=== PATIENT | female | born 1990 | race African-American/Black ===

== ENCOUNTER 2019-03-10 03:36 | Inpatient (IN) ==
[2019-03-10] MEDS ORDERED: CITRIC ACID/SODIUM CITRATE 30 ML UDCUP PO ONE (03:58)
[2019-03-10] MEDS ORDERED: ceFAZolin 2,000 MG in PREMIX 1 EACH IV ONE (03:58)
[2019-03-10] MEDS ORDERED: FAMOTIDINE 20 MG/2 ML VIAL IV ONE (03:58)
[2019-03-10] MEDS ORDERED: OXYTOCIN/LR 30 UNIT/1,000 ML BAG IV PRN (04:00)
[2019-03-10] MEDS ORDERED: OXYTOCIN 10 UNIT/ML VIAL ONE (04:02)
[2019-03-10 04:20] LABS: Basophils # 0.1 10*3/uL (0.0-0.2); Basophils % 0.5 % (0.0-0.8); Eosinophils # 0.1 10*3/uL (0.0-0.87); Eosinophils % 1.4 % (0.00-10.9); Hematocrit 34.9 VOL% (35.7-47.0); Hemoglobin 12.1 GM/DL (12.0-16.0); Immature Granulocytes % 0.5 %; Immature Granulocytes Absolute 0.05 #; Lymphocytes # 1.9 10*3/uL (1.4-4.0); Lymphocytes % 20.1 % (21.3-54.2); Mean Corpuscular HGB Conc 34.7 GM/DL (32-36); Mean Corpuscular Volume 97.2 FL (87-102); Mean Platelet Volume 9.5 FL (9.6-12.0); Monocytes % 6.8 % (1.7-12.7); Neutrophils % 70.7 % (38.7-73.9); Platelet Count 240 T/CUMM (130-400); Red Blood Count 3.59 MC/CUMM (3.8-5.5); Red Cell Distribution Width 12.7 % (9.3-17.3); White Blood Count 9.3 T/CUMM (4-12)
[2019-03-10 04:29] LABS: INR 0.8; PT Patient Result 9.1 SECS (9.6-12.2); Partial Thromboplastin Time 21.8 SECS (20.8-36.0)
[2019-03-10 04:41] LABS: Bilirubin,Direct < 0.100 MG/DL (0.0-0.20)
[2019-03-10 04:45] LABS: Alanine Aminotransferase 20 U/L (13-56); Alkaline Phosphatase 118 U/L (45-117); Aspartate Amino Transferase 17 U/L (0-37); Bilirubin,Total < 0.39 MG/DL (0.2-1.0); Blood Urea Nitrogen 6 MG/DL (7-18); Calcium 8.8 MG/DL (8.5-10.1); Estimated Glom Filtration Rate 117 ML/MIN; Glucose 130 MG/DL (74-106)
[2019-03-10 04:53] LABS: Cord Arterial Blood HCO3 17.6 MMOL/L; Cord Venous Blood HCO3 22.1 MMOL/L; Cord Venous Blood PCO2 50.7 MMHG; Cord Venous Blood PO2 24.2 MMHG
[2019-03-10 05:14] LABS: Amorphous Crystals,Urine Occasional /HPF (Few); Apearance,Urine Slightly Hazy (Clear); Bacteria,Urine Occasional /HPF (Few); Bilirubin,Urine Negative (Negative); Blood, Urine Negative (Negative); Glucose,Urine (UA) Negative (Negative); Ketones,Urine Negative (Negative); Mucus,Urine Many /LPF (Occasional); Nitrite,Urine Negative (Negative); Protein,Urine 100 MG/DL; RBC,Urine 2 /HPF (0-4); Squamous Epithelial Cell,Urine Occasional /HPF (0-10); Urine Color Yellow (Yellow); Urine Specific Gravity 1.017 (1.001-1.035); WBC,Urine 1 /HPF (0-6)
[2019-03-10] MEDS ORDERED: PROPOFOL 200 MG/20 ML VIAL IV ONE (05:28)
[2019-03-10] MEDS ORDERED: fentaNYL 100 MCG/2 ML VIAL ONE (05:29)
[2019-03-10] MEDS ORDERED: MIDAZOLAM 2 MG/2 ML VIAL ONE (05:30)
[2019-03-10] MEDS ORDERED: DEXAMETHASONE 10 MG/1 ML VIAL ONE (05:30)
[2019-03-10] MEDS ORDERED: ONDANSETRON 4 MG/2 ML VIAL ONE (05:31)
[2019-03-10] MEDS ORDERED: LIDOCAINE 2% 5 ML VIAL ONE (05:31)
[2019-03-10] MEDS ORDERED: SUCCINYLCHOLINE 200 MG/10 ML VIAL ONE (05:32)
[2019-03-10] MEDS ORDERED: SEVOFLURANE 1 UNIT/15 MINUTE INH ONE (05:32)
[2019-03-10] MEDS: HYDROmorphone 2 MG/1 ML VIAL IV SCH ×4 (06:02→18:49)
[2019-03-10] MEDS ORDERED: ONDANSETRON 4 MG/2 ML VIAL IV PRN (06:06)
[2019-03-10] MEDS ORDERED: OXYTOCIN/LR 20 UNIT/1,000 ML BAG IV ONE (06:06)
[2019-03-10] MEDS ORDERED: RHO(D) IMMUNE GLOBULIN 300 MCG SYRINGE IM ONE (06:06)
[2019-03-10] MEDS ORDERED: ACETAMINOPHEN 325 MG TABLET PO PRN (06:06)
[2019-03-10] MEDS: LACTATED RINGERS 1,000 ML IV SCH ×5 (07:12→18:21)
[2019-03-10] MEDS: ceFAZolin 1,000 MG in SYRINGE 1 EACH IV SCH ×2 (07:41→16:26)
[2019-03-10] MEDS ORDERED: hydrALAZINE 20 MG/1 ML VIAL IV ONE ×2 (09:31→10:03)
[2019-03-10] MEDS: diphenhydrAMINE 50 MG/1 ML VIAL IV PRN ×2 (10:46→18:19)
[2019-03-10 11:15] LABS: Hematocrit 28.9 VOL% (35.7-47.0)
[2019-03-10] MEDS: HYDROmorphone 2 MG/1 ML VIAL IV PRN ×2 (13:43→17:56)
[2019-03-10] MEDS ORDERED: ceFAZolin 1,000 MG in SYRINGE 1 EACH IV ONE (16:09)
[2019-03-10] MEDS: DOCUSATE SODIUM 100 MG CAPSULE PO SCH ×2 (16:25→22:32)
[2019-03-10] MEDS: MULTIVITAMIN (PRENATAL) TABLET PO SCH (16:25)
[2019-03-10] MEDS ORDERED: KETOROLAC 30 MG/1 ML VIAL IV PRN (19:27)
[2019-03-10] MEDS: SIMETHICONE CHEW 80 MG TABLET PO PRN (19:34)
[2019-03-10] MEDS: POTASSIUM CHLORIDE 20 MEQ TABLET PO PRN ×3 (19:51→23:51)
[2019-03-10 20:17] LABS: Hematocrit 24.3 VOL% (35.7-47.0); Hemoglobin 8.4 GM/DL (12.0-16.0)
[2019-03-10] MEDS: hydrOXYzine HCL 25 MG/1 ML VIAL IM PRN (22:09)
[2019-03-10] MEDS ORDERED: oxyCODONE/ACETAMINOPHEN 5-325 MG TABLET PO PRN (22:33)
[2019-03-11] MEDS: oxyCODONE/ACETAMINOPHEN 5-325 MG TABLET PO PRN ×4 (01:17→20:10)
[2019-03-11] MEDS: POTASSIUM CHLORIDE 20 MEQ TABLET PO PRN ×3 (01:45→11:27)
[2019-03-11] MEDS: hydrOXYzine HCL 25 MG/1 ML VIAL IM PRN (03:21)
[2019-03-11] MEDS ORDERED: diphenhydrAMINE CAP 25 MG CAPSULE PO PRN (03:24)
[2019-03-11] MEDS ORDERED: INFLUENZA VIRUS VACCINE 0.5 ML SYRINGE IM ONE (06:14)
[2019-03-11] MEDS: MULTIVITAMIN (PRENATAL) TABLET PO SCH (08:48)
[2019-03-11] MEDS: SIMETHICONE CHEW 80 MG TABLET PO PRN (08:48)
[2019-03-11] MEDS: DOCUSATE SODIUM 100 MG CAPSULE PO SCH ×2 (08:48→20:07)
[2019-03-11] MEDS: MAGNESIUM HYDROXIDE SUSP 30 ML UDCUP PO PRN ×2 (08:49→20:07)
[2019-03-11] MEDS: IBUPROFEN 800 MG TABLET PO PRN ×2 (12:34→20:10)
[2019-03-11 16:06] LABS: Basophils % 0.2 % (0.0-0.8); Eosinophils # 0.1 10*3/uL (0.0-0.87); Eosinophils % 0.7 % (0.00-10.9); Hematocrit 26.7 VOL% (35.7-47.0); Hemoglobin 8.8 GM/DL (12.0-16.0); Immature Granulocytes % 0.6 %; Immature Granulocytes Absolute 0.09 #; Lymphocytes # 2.1 10*3/uL (1.4-4.0); Lymphocytes % 13.7 % (21.3-54.2); Mean Corpuscular Volume 101.1 FL (87-102); Mean Platelet Volume 9.4 FL (9.6-12.0); Monocytes % 7.5 % (1.7-12.7); Neutrophils % 77.3 % (38.7-73.9); Platelet Count 226 T/CUMM (130-400); Red Blood Count 2.64 MC/CUMM (3.8-5.5); Red Cell Distribution Width 13.5 % (9.3-17.3); White Blood Count 15.2 T/CUMM (4-12)
[2019-03-12] MEDS ORDERED: FERROUS SULFATE 325 MG TABLET PO SCH (09:00)
[2019-03-12] MEDS: DOCUSATE SODIUM 100 MG CAPSULE PO SCH (09:18)
[2019-03-12] MEDS: MULTIVITAMIN (PRENATAL) TABLET PO SCH (09:18)
[2019-03-12] MEDS: oxyCODONE/ACETAMINOPHEN 5-325 MG TABLET PO PRN (10:38)
[2019-03-12 12:12] VITALS: BP 153/85
== END 2019-03-12 14:45 | disposition home or self-care (01) | DRG 540 ==
LOC: N.LDOUT 03:36 → N.LD 03:37 → N.OB 13:34
PROVIDERS: ADMIT Obstetrics & Gynecology; ATTEND Obstetrics & Gynecology
PROC: LDCSECT (ICD-10-PCS; 2019-03-10 04:20)